=== PATIENT | female | born 1980 | race Caucasian/White ===

== ENCOUNTER 2017-01-06 07:42 | Emergency (ER) ==
[2017-01-06] MEDS ORDERED: ASPIRIN ONE (07:55)
[2017-01-06] MEDS ORDERED: ASPIRIN PO STA (08:01)
[2017-01-06 08:11] LABS: MANUAL DIFF NEEDED? NO
--- NOTE | 2017-01-06 08:14 | EKG Report ---
Test Performed on : 01/06/2017 07:46:57 AM Test Reason : CHEST PAIN Blood Pressure : / mmHG Vent. Rate : 083 BPM Atrial Rate : 083 BPM P-R Int : 162 ms QRS Dur : 100 ms QT Int : 408 ms P-R-T Axes : 056 045 065 degrees QTc Int : 479 ms Normal sinus rhythm. Nonspecific T wave abnormality Prolonged QT Abnormal ECG When compared with ECG of 03-JAN-2016 08:40, No significant change was found Unconfirmed Result
[2017-01-06 08:16] LABS: BASO% 0.1 % (0.0-0.8); EOS# 0.08 X1000 (0.0-0.7); EOS% 1.1 % (0.0-10.0); HEMATOCRIT 40.9 % (37.0-47.0); HEMOGLOBIN 14.1 g/dL (12.0-16.0); IMM GRAN# 0.01 X1000 (0.0-0.04); IMM GRAN% 0.1 % (0.0-0.5); LYMPH# 3.15 X1000 (1.2-3.4); LYMPH% 44.4 % (20.5-51.1); MCH 30.2 PG (27-31); MCHC 34.5 g/dL (33-37); MCV 87.6 FL (81-99); MONO# 0.45 X1000 (0.11-0.59); MONO% 6.3 % (1.7-9.3); MPV 9.1 FL (7.4-10.4); PLT 267 X1000 (130-400); RBC 4.67 XMIL (4.2-5.4)
[2017-01-06 08:27] LABS: PROTIME 13.5 Seconds (12.1-15.5)
[2017-01-06 08:38] LABS: AGAP 12; ALBUMIN 4.1 g/dL (3.5-5.0); ALKALINE PHOSPHATASE 70 U/L (32-104); BUN 8 mg/dL (8-22); CALCIUM 9.1 mg/dL (8.8-10.2); CHLORIDE 102 mmol/L (98-107); CK PROFILE 56 U/L (24-173); COSMO 277; GOT 17 U/L (10-30); GPT 17 U/L (10-36); MAGNESIUM 2.1 mg/dL (1.5-2.7); POTASSIUM 3.3 mmol/L (3.5-5.1); SODIUM 139 mmol/L (136-145); TCO2 26 mmol/L (25-35); TOTAL PROTEIN 6.7 g/dL (6.3-8.3)
--- NOTE | 2017-01-06 09:16 | Diag Imaging Result Document ---
PROCEDURE NAME: CHEST-2 VIEWS - 01/06/2017 TWO VIEWS OF THE CHEST: FINDINGS: There are surgical clips bilaterally in the lower chest. The heart size and pulmonary vascularity are within normal limits and, overall, the appearance of the chest is stable, compared to 10/21/2016. IMPRESSION: Stable chest.
[2017-01-06] MEDS ORDERED: TYLENOL PO ONE (09:49)
--- NOTE | 2017-01-06 10:00 | PROVIDER DOCUMENTATION ---
HPI-Chest Pain - General Source: patient - History of Present Illness-CP Location: reports: central Chest Pain Radiation: reports: back Quality of Pain: reports: pressure Severity in ED: mild Onset/Duration: this morning Timing: still present, improving Context/Activities at Onset: reports: light activity Modifying Factors: improves with: nothing Associated Symptoms: reports: back pain, diaphoresis, headache, nausea, shortness of breath. denies: abdominal pain, dizziness, edema, fatigue, fever/ chills, heartburn, rash, swelling/lump in chest, syncope, vomiting, weakness Nitro Today/Relief: no nitro taken today Aspirin Treatment Today: 81 mg x 1, provided at home Similar Symptoms Previously?: Yes Recently Seen Here or By Another Healthcare Provider: No <Mary Corral - Last Filed: 01/06/17 11:23> <Magnus Wray - Last Filed: 01/06/17 11:33> - General Chief Complaint: Chest Pain Stated Complaint: CHEST PAIN Time Seen by Provider: 01/06/17 09:48 Allergies/Adverse Reactions: Patient Allergies Allergy/AdvReac Type Severity Reaction Status Date / Time morphine Allergy Severe ITCHING Verified 01/06/17 07:53 butorphanol tartrate * AdvReac Severe SHORTNESS Verified 01/06/17 07:53 [From Stadol] OF BREATH Home Medications: Home Medication List Medication Instructions Recorded Confirmed Last Taken Type Citalopram [Celexa] 20 mg PO DAILY 05/19/14 01/06/17 01/02/16 History Eszopiclone [Lunesta] 3 mg PO HS 07/27/15 01/06/17 Unknown History Omeprazole [Prilosec] 40 mg PO DAILY 07/27/15 01/06/17 01/02/16 History - History of Present Illness-CP Nature of Presenting Problem: Pt is 36 y/o F presents to the ED with CP. Pt states CP started at 0650 this am. Pt states pressure on chest. Pt state CP radiates to back. Pt state SOB, sweating and N. Pt states having a BALDWIN (Mary Corral) Review of Systems - Adult - REVIEW OF SYSTEMS - ADULT Constitutional: denies: chills, fever Eyes: denies: blurred vision, double vision Ears, Nose, Mouth & Throat: denies: ear pain, nose pain, throat pain Cardiovascular: reports: chest pain. denies: heart murmur, irregular heart rate Respiratory: reports: shortness of breath. denies: cough, wheezing Gastrointestinal: reports: nausea. denies: abdominal pain, diarrhea, vomiting Genitourinary: denies: dysuria, hematuria Musculoskeletal: denies: bone pain, joint pain, neck pain Integumentary: denies: hives, itching Neurological: reports: headache/migraines (BALDWIN). denies: dizziness/vertigo Psychiatric: reports: no symptoms reported Endocrine: reports: no symptoms reported Hematologic/Lymphatic: reports: no symptoms reported Allergic/Immunologic: reports: no symptoms reported All Other Systems: Reviewed and Negative <Mary Corral - Last Filed: 01/06/17 11:23> Past History - Adult - PAST MEDICAL HISTORY-ADULT Review of Records: reports: Nursing Assessment Review, Medications Reviewed, Social history reviewed & non-contributory. Major Childhood Illnesses: reports: denies history Cardiovascular: reports: denies history Respiratory: reports: asthma, COPD Gastrointestinal: reports: IBS Obstetrical/Gynecological: reports: other (Breast cancer) Genitourinary: reports: other (interstitial cystitis) Musculoskeletal: reports: other (fibromyalgia) Neurological: reports: denies history Psychiatric: reports: depression Endocrine/Immune: reports: denies history Other Conditions: reports: other (sleep apnea) - PRIOR SURGERIES/PROCEDURES Surgical/Procedure History: reports: cholecystectomy, hysterectomy, ( x2), other (clarence mastectomy, abdominoplasty, laproscopic adhesions removed, T & A) - IMMUNIZATION STATUS Childhood Immunizations: See Nurse Assessment Flu Vaccine: See Nurse Assessment - FAMILY HISTORY Family History: reviewed, not pertinent - SOCIAL HISTORY Smoking: denies Substance Use: denies Living Situation: family <Mary Corral - Last Filed: 01/06/17 11:23> Physical Exam-General - CONSTITUTIONAL General Appearance: appears well, alert, no apparent distress - EYES Eyes: PERRL/EOMI, pink conjunctivae, fundi clear, no AV nicking - HEAD, EARS, NOSE, MOUTH & THROAT HENMT: normocephalic/atraumatic, moist mucous membranes, normal ENT inspection, TMs normal, pharynx normal - NECK Neck: non-tender, full range of motion, supple, normal inspection - RESPIRATORY Respiratory: chest non-tender, lungs clear, normal breath sounds, no pleuratic chest pain, no respiratory distress, no accessory muscle use - CARDIOVASCULAR Cardiovascular: normal peripheral pulses, regular rate, rhythm, no edema, no gallop, no JVD, no murmur - GASTROINTESTINAL (ABDOMEN) Abdominal Exam: normal bowel sounds, non tender, soft, no organomegaly, no pulsatile mass - LYMPHATIC Lymphatic: no adenopathy - MUSCULOSKELETAL Back Exam: normal inspection, no CVA tenderness, no vertebral tenderness Extremity: normal range of motion, non-tender, normal gait, normal inspection, no pedal edema, no calf tenderness, normal capillary refill - SKIN Integumentary: normal color, normal turgor, warm/dry - NEUROLOGIC Neurologic: grossly normal - PSYCHIATRIC Psych/Mental Status: normal mood/affect, oriented x 3 <Mary Corral - Last Filed: 01/06/17 11:23> Progress - EKG 1 Time of EKG reading by physician:: 07:46 EKG Read and Signed by:: Magnus Wray EKG Interpretation (*Must complete 3 of following elements*): Abnormal Rate: 83 Rhythm: normal sinus rhythm Comments: nonspecific T wave abnormality; prolonged QT 2 Time of EKG reading by physician:: 10:17 EKG Read and Signed by:: Magnus Wray EKG Interpretation (*Must complete 3 of following elements*): Abnormal Rate: 74 Rhythm: normal sinus rhythm Comments: possible anterior infarct, age undetermined - XRAY 1 XRAY: Bilateral XRAY Study: Chest Impression: Normal XRAY Interpretation: stable chest <Mary Corral - Last Filed: 01/06/17 11:23> <Magnus Wray - Last Filed: 01/06/17 11:33> - PLAN OF CARE/RESULTS Progress/Plan/Lab Results: Laboratory Tests 01/06/17 01/06/17 01/06/17 07:50 07:50 07:50 WBC RBC Hgb Hct MCV MCH MCHC RDW Std Deviation Plt Count MPV Immature Gran % (Auto) Neut % (Auto) Lymph % (Auto) [place] % (Auto) Eos % (Auto) Baso % (Auto) Immature Gran # (Auto) Neut # (Auto) Lymph # (Auto) [place] # (Auto) Eos # (Auto) Baso # (Auto) PT INR APTT (Factor Assay) Sodium 139 Potassium 3.3 L Chloride 102 Carbon Dioxide 26 Anion Gap 12 BUN 8 Creatinine 0.8 Estimated GFR/1.73 m2 > 60 BUN/Creatinine Ratio 10 Glucose 114 H Calculated Osmolality 277 Calcium 9.1 Magnesium 2.1 Total Bilirubin 0.50 AST 17 ALT 17 Alkaline Phosphatase 70 Creatine Kinase 56 Troponin T < 0.010 Psp-T-Mpljawyltso Pept 44 Total Protein 6.7 Albumin 4.1 Globulin 3.0 Albumin/Globulin Ratio 2.0 01/06/17 01/06/17 07:50 07:50 WBC 7.10 RBC 4.67 Hgb 14.1 Hct 40.9 MCV 87.6 MCH 30.2 MCHC 34.5 RDW Std Deviation 12.6 Plt Count 267 MPV 9.1 Immature Gran % (Auto) 0.1 Neut % (Auto) 48.0 Lymph % (Auto) 44.4 [place] % (Auto) 6.3 Eos % (Auto) 1.1 Baso % (Auto) 0.1 Immature Gran # (Auto) 0.01 Neut # (Auto) 3.40 Lymph # (Auto) 3.15 [place] # (Auto) 0.45 Eos # (Auto) 0.08 Baso # (Auto) 0.01 PT 13.5 INR 1.00 APTT (Factor Assay) 29.0 Sodium Potassium Chloride Carbon Dioxide Anion Gap BUN Creatinine Estimated GFR/1.73 m2 BUN/Creatinine Ratio Glucose Calculated Osmolality Calcium Magnesium Total Bilirubin AST ALT Alkaline Phosphatase Creatine Kinase Troponin T Fci-F-Zodziwudmeg Pept Total Protein Albumin Globulin Albumin/Globulin Ratio Orders Category Date Time Status Cardiac Monitoring DIRECTED Care 01/06/17 08:04 Active Oxygen Therapy- ED Nursing DIRECTED Care 01/06/17 08:04 Active Saline Loc NOW Care 01/06/17 08:04 Active CHEST-2 VIEWS [RAD] Stat Exams 01/06/17 08:04 Draft CBC WITH ELECTRONIC DIFF [HEME] Stat Lab 01/06/17 07:50 Completed CK PROFILE [SP CHEM] Stat Lab 01/06/17 07:50 Completed COMPREHENSIVE METABOLIC PANEL [CHEM] Stat Lab 01/06/17 07:[address] D-D[address]ER [address] [COAG] Stat Lab 01/06/17 08:04 Received MAGNESIUM [CHEM] Stat Lab 01/06/17 07:50 Completed PRO B-NATRIURETIC PEPTIDE Stat Lab 01/06/17 07:[address]IME WITH INR PL [COAG] Stat Lab 01/06/17 07:[address] [COAG] Stat Lab 01/06/17 07:50 Completed TROPONIN T Stat Lab 01/06/17 07:50 Completed Acetaminophen [Tylenol] Med 01/06/17 09:49 Discontinued 1,000 mg PO NOW ONE Aspirin Med 01/06/17 07:55 Discontinued 325 mg .ROUTE .STK-MED ONE Aspirin Med 01/06/17 08:01 Discontinued 325 mg PO STAT STA EKG [EKG] Stat Ther 01/06/17 08:04 Draft Vital Signs - 24 hr 01/06/17 07:48 Temperature 98 F Pulse Rate 89 Respiratory 18 Rate Blood Pressure 146/110 O2 Sat by Pulse 98 Oximetry Laboratory Tests 01/06/17 01/06/17 01/06/17 07:50 07:50 07:50 WBC RBC Hgb Hct MCV MCH MCHC RDW Std Deviation Plt Count MPV Immature Gran % (Auto) Neut % (Auto) Lymph % (Auto) [place] % (Auto) Eos % (Auto) Baso % (Auto) Immature Gran # (Auto) Neut # (Auto) Lymph # (Auto) [place] # (Auto) Eos # (Auto) Baso # (Auto) PT INR APTT (Factor Assay) D-Dimer Sodium 139 Potassium 3.3 L Chloride 102 Carbon Dioxide 26 Anion Gap 12 BUN 8 Creatinine 0.8 Estimated GFR/1.73 m2 > 60 BUN/Creatinine Ratio 10 Glucose 114 H Calculated Osmolality 277 Calcium 9.1 Magnesium 2.1 Total Bilirubin 0.50 AST 17 ALT 17 Alkaline Phosphatase 70 Creatine Kinase 56 Troponin T < 0.010 Thi-G-Ekixieggxzy Pept 44 Total Protein 6.7 Albumin 4.1 Globulin 3.0 Albumin/Globulin Ratio 2.0 01/06/17 01/06/17 01/06/17 07:50 07:50 08:04 WBC 7.10 RBC 4.67 Hgb 14.1 Hct 40.9 MCV 87.6 MCH 30.2 MCHC 34.5 RDW Std Deviation 12.6 Plt Count 267 MPV 9.1 Immature Gran % (Auto) 0.1 Neut % (Auto) 48.0 Lymph % (Auto) 44.4 [place] % (Auto) 6.3 Eos % (Auto) 1.1 Baso % (Auto) 0.1 Immature Gran # (Auto) 0.01 Neut # (Auto) 3.40 Lymph # (Auto) 3.15 [place] # (Auto) 0.45 Eos # (Auto) 0.08 Baso # (Auto) 0.01 PT 13.5 INR 1.00 APTT (Factor Assay) 29.0 D-Dimer < 0.22 L Sodium Potassium Chloride Carbon Dioxide Anion Gap BUN Creatinine Estimated GFR/1.73 m2 BUN/Creatinine Ratio Glucose Calculated Osmolality Calcium Magnesium Total Bilirubin AST ALT Alkaline Phosphatase Creatine Kinase Troponin T Pss-U-Iawtrbhtxtz Pept Total Protein Albumin Globulin Albumin/Globulin Ratio 01/06/17 01/06/17 10:14 10:14 WBC RBC Hgb Hct MCV MCH MCHC RDW Std Deviation Plt Count MPV Immature Gran % (Auto) Neut % (Auto) Lymph % (Auto) [place] % (Auto) Eos % (Auto) Baso % (Auto) Immature Gran # (Auto) Neut # (Auto) Lymph # (Auto) [place] # (Auto) Eos # (Auto) Baso # (Auto) PT INR APTT (Factor Assay) D-Dimer Sodium Potassium Chloride Carbon Dioxide Anion Gap BUN Creatinine Estimated GFR/1.73 m2 BUN/Creatinine Ratio Glucose Calculated Osmolality Calcium Magnesium Total Bilirubin AST ALT Alkaline Phosphatase Creatine Kinase 55 Troponin T < 0.010 Xoy-L-Oystyqilccu Pept Total Protein Albumin Globulin Albumin/Globulin Ratio (Mary Corral) Departure <Mary Corral - Last Filed: 01/06/17 11:23> - Departure Time of Disposition Order: 11:31 Certified Medical Emergency: Emergent <Magnus Wray - Last Filed: 01/06/17 11:33> - Departure DIAGNOSIS: Atypical chest pain Migraine Qualifiers: Migraine type: unspecified Status migrainosus presence: without status migrainosus Intractability: not intractable Qualified Code(s): G43.909 - Migraine, unspecified, not intractable, without status migrainosus DIAGNOSIS: (Ruled Out): Anemia Disposition: HOME 01 Condition: Stable Additional Instructions: ED Follow Up Instructions: You have been treated by a care provider in the Emergency Department. These instructions are being provided to you so you can have an understanding of how to care for yourself upon discharge. Upon discharge from the Emergency Department, you are responsible for making arrangements for follow-up care by a physician of your choice. Take all prescribed medications as directed. Return to the Emergency Department immediately for any new or worsening symptoms. You may call the Physician Referral phone number at [phone] to obtain a list of Physicians who are taking new patients. Referrals: Selvin Jeffrey MD [Primary Care Provider] - Attestation - Scribe Verification/Attestation Scribe:: Mary Corral Acting as Scribe for:: Magnus Wray Scribe documention review:: This chart was documented by a scribe and accurately reflects the service the provider performed and the decisions made by the provider. <Mary Corral - Last Filed: 01/06/17 11:23> Physician Attestation
--- NOTE | 2017-01-06 10:26 | EKG Report ---
Test Performed on : 01/06/2017 10:17:12 AM Test Reason : REPEAT Blood Pressure : / mmHG Vent. Rate : 074 BPM Atrial Rate : 074 BPM P-R Int : 176 ms QRS Dur : 096 ms QT Int : 440 ms P-R-T Axes : 060 036 057 degrees QTc Int : 488 ms Normal sinus rhythm. Possible Anterior infarct , age undetermined Abnormal ECG When compared with ECG of 06-JAN-2017 07:46, (Unconfirmed) No significant change was found Unconfirmed Result
[2017-01-06] MEDS ORDERED: PHENERGAN IM ONE (11:08)
[2017-01-06] MEDS ORDERED: NUBAIN IM ONE (11:08)
[2017-01-06 11:52] VITALS: BP 129/97
== END 2017-01-06 11:52 | disposition home or self-care (01) ==
LOC: P.ED 07:42
DX: R07.89 Other chest pain (principal); G43.909 Migraine, unspecified, not intractable, without status migrainosus; R94.31 Abnormal electrocardiogram [ECG] [EKG]; M54.9 Dorsalgia, unspecified; R61 Generalized hyperhidrosis; R51 Headache; R11.0 Nausea; R06.02 Shortness of breath; M79.7 Fibromyalgia; F32.9 Major depressive disorder, single episode, unspecified; Z79.899 Other long term (current) drug therapy; Z85.3 Personal history of malignant neoplasm of breast; Z90.13 Acquired absence of bilateral breasts and nipples
CPT/HCPCS: 71020; 80053; 82550; 83735; 83880; 84484; 85025; 85379; 85610; 85730; 93005; 96372; J2300; J2550

== ENCOUNTER 2017-03-09 08:00 | Inpatient (IN) ==
[2017-03-09] MEDS ORDERED: PEPCID ONE ×2 (08:12→08:13)
[2017-03-09] MEDS ORDERED: REGLAN ONE ×2 (08:12→08:13)
[2017-03-09] MEDS ORDERED: TRANSDERM-SCOP ONE (08:13)
[2017-03-09] MEDS ORDERED: VALIUM ONE (08:14)
[2017-03-09] MEDS ORDERED: CLINDAMYCIN 600 MG/NS 600 MG/50 ML IVPB ONE (08:14)
[2017-03-09] MEDS ORDERED: LR 1,000 ML ONE ×2 (08:15→15:30)
[2017-03-09] MEDS ORDERED: XYLOCAINE 1%/EPI 1:100,000 ONE (10:06)
[2017-03-09] MEDS ORDERED: CLINDAMYCIN ONE (10:06)
[2017-03-09] MEDS: DEMEROL ONE ×2 (13:24→13:35)
[2017-03-09] MEDS ORDERED: SODIUM CHLORIDE 0.9% INJ PRN (14:15)
[2017-03-09] MEDS ORDERED: PHENERGAN IV PRN (14:15)
[2017-03-09] MEDS: DECADRON IV SCH ×2 (14:57→21:47)
--- NOTE | 2017-03-09 15:10 | OPERATIVE NOTE ---
PROCEDURE DATE: 03/09/2017 PREOPERATIVE DIAGNOSIS: Right thyroid mass. POSTOPERATIVE DIAGNOSIS: Right thyroid mass. PROCEDURE: Right thyroid total lobectomy. SURGEON: Charles Self MD COMPLICATIONS: None. ANESTHESIA: General with endotracheal intubation. 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 Dr. Lisa Ball daily said she favored benign, but could not call that until permanent section analysis was completed in a few days. PROCEDURE: Patient was identified, consented, brought to the operating room, placed in supine position where general anesthesia was induced with endotracheal intubation. The collar incision was outlined and injected with lidocaine with epinephrine. She was prepped and draped. Incision was created down to the platysma. Flaps were elevated. Subplatysmal in the superior and inferior direction. The midline dissection approached the isthmus of the thyroid. The right thyroid lobe was blunt dissected over its capsule out laterally inferiorly and superiorly. The blood vessels were cauterized using the LigaSure technique or bipolar electrocautery. The recurrent laryngeal nerve was identified and kept away from the plane of dissection. The right lobe was delivered and it the isthmus sent for pathologic analysis and frozen section revealed the findings above. She tolerated the procedure well. Hemostasis was ascertained with Valsalva. Drain was placed. Strap muscles were returned to midline and secured with 4-0 simple interrupted Vicryl. Subcutaneous with simple interrupted deep and intermediate 4-0 Vicryl stitches were used for closure and a 4-0 Prolene was used for subcuticular closure. The drain was brought out through a separate stab incision. Mild pressure dressing was applied. She was allowed to recover from anesthesia, transferred to recovery room in stable condition. cc: Charles Self MD
[2017-03-09] MEDS ORDERED: FENTANYL ONE (15:14)
[2017-03-09] MEDS ORDERED: VERSED ONE (15:15)
[2017-03-09] MEDS ORDERED: DIPRIVAN 1% ONE (15:15)
[2017-03-09] MEDS ORDERED: SODIUM CHLORIDE 0.9% 10 ML ONE (15:29)
[2017-03-09] MEDS ORDERED: ZOFRAN ONE (15:29)
[2017-03-09] MEDS ORDERED: LUBRIFRESH PM OPH OINTMENT ONE (15:29)
[2017-03-09] MEDS ORDERED: PHENERGAN ONE (15:29)
[2017-03-09] MEDS ORDERED: XYLOCAINE-MPF 2% ONE (15:30)
[2017-03-09] MEDS ORDERED: DECADRON ONE (15:30)
[2017-03-09] MEDS ORDERED: ZEMURON ONE (15:30)
[2017-03-09] MEDS ORDERED: EPHEDRINE ONE (15:30)
[2017-03-09] MEDS ORDERED: ROBINUL ONE (15:30)
[2017-03-09] MEDS ORDERED: QUELICIN (DOSE) ONE (15:30)
[2017-03-09] MEDS: PERCOCET-5 PO SCH ×3 (16:15→21:47)
[2017-03-09] MEDS ORDERED: LABETALOL IV ONE (16:46)
[2017-03-09] MEDS ORDERED: LABETALOL IV PRN (16:59)
[2017-03-09] MEDS: CLINDAMYCIN 600 MG/NS 600 MG/50 ML IVPB IV SCH (18:37)
[2017-03-09] MEDS ORDERED: PERIDEX MT SCH (21:00)
[2017-03-09] MEDS ORDERED: LUNESTA PO SCH (21:00)
[2017-03-09] MEDS ORDERED: AMBIEN PO SCH (21:00)
[2017-03-10] MEDS: CLINDAMYCIN 600 MG/NS 600 MG/50 ML IVPB IV SCH (01:46)
[2017-03-10] MEDS: PERCOCET-5 PO SCH ×4 (01:46→07:44)
[2017-03-10] MEDS: DECADRON IV SCH (06:37)
[2017-03-10] MEDS ORDERED: PRILOSEC PO SCH (07:00)
[2017-03-10 07:33] VITALS: BP 132/73
[2017-03-10] MEDS ORDERED: PATIENT'S OWN MED PO SCH (09:00)
[2017-03-10] MEDS ORDERED: ALLEGRA PO SCH (09:00)
[2017-03-10] MEDS ORDERED: CELEXA PO SCH (09:00)
== END 2017-03-10 08:05 | disposition home or self-care (01) ==
LOC: OR 08:00 → 4N 08:00 → OBSVTOIN 12:42
PROVIDERS: ADMIT Otolaryngology Otolaryngology/Facial Plastic Surgery; ATTEND Otolaryngology Otolaryngology/Facial Plastic Surgery